=== PATIENT | male | born 1985 | race Two or more races ===

== ENCOUNTER 2018-05-20 10:04 | Outpatient (CLI) | payer BC ==
--- NOTE | 2018-05-20 14:36 | Diagnostic Imaging Report ---
Indications: Left-sided testicular pain Technique: Grayscale and duplex images of the scrotum Comparison: none Findings:The right testicle measures 3.1cm in length. It demonstrates normal echogenicity. Normal Doppler flow. Normal epididymis. There is a trace hydrocele The left testicle measures 3.2 cm in length. It demonstrates normal echogenicity and normal Doppler flow. Normal epididymis. There is a small varicocele. There is also trace hydrocele Impression: Essentially unremarkable exam. Negative for evidence of testicular torsion or epididymoorchitis Small left-sided varicocele, trace bilateral hydroceles incidentally noted
== END 2018-05-20 12:04 | disposition home or self-care (01) ==
LOC: ULS 10:04
DX: N50.812 Left testicular pain (principal)
CPT/HCPCS: 76870